=== PATIENT | male | born 1965 | race Caucasian/White ===

== ENCOUNTER → 2016-10-04 | Outpatient (CLI) | payer BC ==
[~2016-10-04] VITALS: Ht 182.9 cm; Wt 106.5 kg
[~2016-10-04] MED LIST: AMITRIPTYLINE H10 MG PO; ASPIR 8181 M1 PO; ASPIR 8181 MG PO; ATACAND16 MG PO; BELSOMRA10 MG PO; BENADRYL ALLERG25 MG PO; CHLORPROMAZINE50 MG PO; CLONAZEPAM0.5 MG PO; COZAAR50 MG PO; CRESTOR20 MG PO; CRESTOR5 MG PO; DEPAKOTE ER500 MG PO; ELAVIL10 MG PO; FIORICET,ESG1 TABLET PO; GABAPENTIN600 MG PO; HYDROCODON-ACE1 EAC7 PO; IMITREX50 MG PO; INDOCIN25 MG PO; KEPPRA250 MG PO; KLONOPIN1 MG PO; LITHIUM CARBON300 MG PO; LO-DOSE ASPIRIN81 M2 PO; LORAZEPAM1 MG PO; NICOTINE PATCH1 EAC2 TD; NORCO 5/3251 TABLET PO; TIZANIDINE HCL2 MG PO; TRAMADOL HCL50 MG PO; VENLAFAXINE HC150 M1 OP; VERAPAMIL HCL120 M1 PO; VERAPAMIL HCL240 MG PO; VITAMIN D31000 UNIT PO; ZEBUTAL 50-3251 EACH PO
[2016-10-04 09:44] VITALS: BP 140/92
== END | disposition home or self-care (01) ==
LOC: OPR 10-01 08:00
PROC: B33RZZZ Magnetic Resonance Imaging (MRI) of Intracranial Arteries (ICD-10-PCS; principal; 2016-10-04)
DX: G81.90 Hemiplegia, unspecified affecting unspecified side (principal); I10 Essential (primary) hypertension; F17.200 Nicotine dependence, unspecified, uncomplicated
CPT/HCPCS: 70544; 70551; B4087; J2250; J2405; J3010

== ENCOUNTER 2016-10-18 12:58 | Inpatient (IN) | payer OTHER ==
[~2016-10-18] VITALS: Ht 182.9 cm; Wt 108.0 kg
[2016-10-18 14:40] LABS: EOSINOPHIL (%) 1.6 % (0-5); EOSINOPHIL COUNT 0.2 K/uL (0-0.3); HEMATOCRIT 45.5 % (38.0-50.0); IMMATURE GRANULOCYTE (%) 0.1 % (0.0-0.7); IMMATURE GRANULOCYTE COUNT 0.1 K/uL; LYMPHOCYTE COUNT 2.2 K/uL (1.0-2.8); MCH 29.5 PG (29.0-34.0); MCHC 34.1 G/DL (30.0-36.0); MCV 86.5 FL (86-99); MEAN PLAT.VOLUME 9.8 uM^3 (9.0-12.4); MONOCYTE (%) 5.6 % (3-12); MONOCYTE COUNT 0.6 K/uL (0-0.8); NEUTROPHIL (%) 70.9 % (45-76); NEUTROPHIL COUNT 7.4 K/uL (1.8-6.4); PLATELET COUNT 229 K/uL (156-360); RBC DIS.WIDTH-CV 12.8 % (11.8-14.6); RED BLOOD COUNT 5.26 M/uL (4.00-5.50); WHITE BLOOD COUNT 10.5 K/uL (4.1-10.2)
[2016-10-18 14:48] LABS: CHLORIDE 107 mEq/L (99-109); POTASSIUM 4.1 mEq/L (3.7-5.4); SODIUM 140 mEq/L (136-147)
[2016-10-18 14:50] LABS: GLUCOSE 98 mg/dL (70-99)
[2016-10-18 14:51] LABS: ANION GAP 9 MEQ/L (2-14)
[2016-10-18 14:53] LABS: SERUM ETHYL ALCOHOL < 10 mg/dL
[2016-10-18 14:54] LABS: GFR ESTIMATE (CALCULATED) > 59 mL/min/
[2016-10-18 14:55] LABS: UREA NITROGEN (BUN) 11 mg/dL (9-23)
[2016-10-18 15:45] LABS: AMPHETAMINE NEGATIVE (500 ng/mL); BARBITURATES NEGATIVE (200 ng/mL); BENZODIAZEPINES NEGATIVE (150 ng/mL); COCAINE NEGATIVE (150 ng/mL); INTERNAL CONTROLS VALID? YES; METHADONE NEGATIVE (200 ng/mL); METHAMPHETAMINE NEGATIVE (500 ng/mL); OPIATES (MORPHINE) NEGATIVE (100 ng/mL); OXYCODONE NEGATIVE (100 ng/mL); PHENCYCLIDINE NEGATIVE (25 ng/mL); PROPOXYPHENE NEGATIVE (300 ng/mL); THC CANNABINOIDS NEGATIVE (50 ng/mL); TRICYCLIC ANTIDEPRESSANTS NEGATIVE (300 ng/mL)
[2016-10-18 16:33] VITALS: BP 136/78
[2016-10-18 16:35] VITALS: BP 136/78
[2016-10-18 20:30] LABS: ADD MIUA? NO; BILIRUBIN NEGATIVE; BLOOD NEGATIVE; COLOR YELLOW ((YELLOW)); GLUCOSE (STRIP) NEGATIVE; KETONES NEGATIVE; LEUKOCYTES NEGATIVE; NITRITE NEGATIVE; PH, URINE 6.5 (5-8); PROTEIN (STRIP) NEGATIVE; SPECIFIC GRAVITY 1.007 (1.000-1.030); UROBILINOGEN 0.2 MG/DL (0.2-1.0)
[2016-10-19 07:34] VITALS: BP 104/58
[2016-10-19 15:52] VITALS: BP 114/65
[2016-10-20 08:02] VITALS: BP 113/80
[2016-10-20] MEDS ORDERED: ASPIR-LOW81 MG PO (10:03)
[2016-10-20] MEDS ORDERED: ZOLOFT50 MG PO (10:03)
[2016-10-20] MEDS ORDERED: INDOCIN25 MG PO ×2 (10:03)
[2016-10-20] MEDS ORDERED: CRESTOR20 MG PO (10:03)
[2016-10-20] MEDS ORDERED: LEVETIRACETAM750 MG PO (10:03)
[2016-10-20] MEDS ORDERED: LOSARTAN POTASS50 MG PO (10:03)
[2016-10-20] MEDS ORDERED: LITHIUM CARBON300 MG PO (10:03)
[2016-10-20] MEDS ORDERED: BELSOMRA10 MG PO (10:03)
[2016-10-20] MEDS ORDERED: VITAMIN D31000 UNI2 PO (10:03)
== END 2016-10-20 12:05 | disposition home or self-care (01) | DRG 882 ==
LOC: EME 12:58 → 1WEST 14:44 → EDOF 14:44 → 1WEST 14:44
PROVIDERS: Emergency Medicine
DX: F43.23 Adjustment disorder with mixed anxiety and depressed mood (principal); I82.0 Budd-Chiari syndrome; F63.81 Intermittent explosive disorder; F60.9 Personality disorder, unspecified; R45.850 Homicidal ideations; F17.210 Nicotine dependence, cigarettes, uncomplicated; E78.5 Hyperlipidemia, unspecified; G43.109 Migraine with aura, not intractable, without status migrainosus; M19.90 Unspecified osteoarthritis, unspecified site; H91.92 Unspecified hearing loss, left ear; F43.12 Post-traumatic stress disorder, chronic; F41.0 Panic disorder [episodic paroxysmal anxiety]; G25.81 Restless legs syndrome; G89.29 Other chronic pain; E66.9 Obesity, unspecified; Z68.32 Body mass index [BMI] 32.0-32.9, adult; Z91.012 Allergy to eggs; Z86.73 Personal history of transient ischemic attack (TIA), and cerebral infarction without residual deficits
CPT/HCPCS: 80048; 80178; 81003; 85025; 90837; 99281; 99285; G0480; J1630; J2060

== ENCOUNTER 2016-11-10 19:46 | Observation (INO) | payer BC ==
[~2016-11-10] VITALS: Ht 182.9 cm; Wt 106.9 kg
[~2016-11-10 19:46] MED LIST changes: +ASPIR-LOW81 MG PO; +LEVETIRACETAM750 MG PO; +LOSARTAN POTASS50 MG PO; +VITAMIN D31000 UNI2 PO; +ZOLOFT50 MG PO
[2016-11-10 21:48] LABS: EOSINOPHIL (%) 1.7 % (0-5); EOSINOPHIL COUNT 0.2 K/uL (0-0.3); HEMATOCRIT 43.3 % (38.0-50.0); IMMATURE GRANULOCYTE (%) 0.1 % (0.0-0.7); IMMATURE GRANULOCYTE COUNT 0.1 K/uL; LYMPHOCYTE COUNT 2.3 K/uL (1.0-2.8); MCH 29.4 PG (29.0-34.0); MCV 88.9 FL (86-99); MEAN PLAT.VOLUME 9.8 uM^3 (9.0-12.4); MONOCYTE (%) 8.4 % (3-12); MONOCYTE COUNT 0.7 K/uL (0-0.8); NEUTROPHIL (%) 62.5 % (45-76); NEUTROPHIL COUNT 5.4 K/uL (1.8-6.4); PLATELET COUNT 194 K/uL (156-360); RBC DIS.WIDTH-CV 13.4 % (11.8-14.6); RBC DIS.WIDTH-SD 42.7 % (39-53); RED BLOOD COUNT 4.87 M/uL (4.00-5.50); WHITE BLOOD COUNT 8.7 K/uL (4.1-10.2)
[2016-11-10 21:59] LABS: PROTHROMBIN TIME 10.5 (9.2-11.2); PTT 25.5 (25-32)
[2016-11-10 22:14] LABS: SAMPLE HEMOLYSIS CHECK 0; SAMPLE ICTERIC CHECK 0; SAMPLE LIPEMIA CHECK 0
[2016-11-10 22:15] LABS: TROP-I INTERPRETATION NEGATIVE; TROPONIN-I 0.02 ng/mL (0.0-0.30)
[2016-11-10 22:20] LABS: HDL CHOLESTEROL 23 MG/DL (Desirable>=40); NON-HDL CHOLESTEROL 108 mg/dL (Desirable<160); TOTAL CHOLESTEROL 131 mg/dL (Desirable<200); TRIGLYCERIDES 457 MG/DL (Normal: <150)
[2016-11-10 22:23] LABS: CHLORIDE 110 mEq/L (99-109); POTASSIUM 4.2 mEq/L (3.7-5.4); SODIUM 142 mEq/L (136-147)
[2016-11-10 22:25] LABS: GLUCOSE 99 mg/dL (70-99)
[2016-11-10 22:27] LABS: ANION GAP 8 MEQ/L (2-14); TOTAL BILIRUBIN 0.4 mg/dL (0.0-1.0)
[2016-11-10 22:29] LABS: ALKALINE PHOSPHATASE 58 IU/L (3-129); GFR ESTIMATE (CALCULATED) > 59 mL/min/
[2016-11-10 22:30] LABS: UREA NITROGEN (BUN) 18 mg/dL (9-23)
[2016-11-10 23:26] LABS: ADD MIUA? NO; BILIRUBIN NEGATIVE; BLOOD NEGATIVE; COLOR YELLOW ((YELLOW)); GLUCOSE (STRIP) NEGATIVE; KETONES 5; LEUKOCYTES NEGATIVE; NITRITE NEGATIVE; PROTEIN (STRIP) 30; SPECIFIC GRAVITY 1.033 (1.000-1.030); UCUL ADDED? NO; UROBILINOGEN 0.2 MG/DL (0.2-1.0)
[2016-11-11] MEDS ORDERED: LO-DOSE ASPIRIN81 M2 PO (00:03)
[2016-11-11] MEDS ORDERED: INDOCIN SR75 MG PO (00:03)
[2016-11-11] MEDS ORDERED: ZOLOFT100 MG PO (00:04)
[2016-11-11] MEDS ORDERED: KEPPRA500 MG PO (00:04)
[2016-11-11] MEDS ORDERED: BELSOMRA10 MG PO (00:05)
[2016-11-11] MEDS ORDERED: LITHIUM CARBON300 MG PO (00:05)
[2016-11-11] MEDS ORDERED: GABAPENTIN600 MG PO (00:06)
[2016-11-11] MEDS ORDERED: KLONOPIN2 MG PO ×2 (00:06)
[2016-11-11 00:49] LABS: SERUM ETHYL ALCOHOL < 10 mg/dL
[2016-11-11 01:38] VITALS: BP 151/72
[2016-11-11 01:42] LABS: BASE EXCESS 0.6 mEq/L (-3 to +3); BICARBONATE 27.8 mEq/L (22-26); CARBOXY HGB 4.4 % (0-5); METHEMOGLOBIN 1.3 % (0-1.5); PCO2 54 mm Hg (35-45); PO2 67 mm Hg (80-100); SITE RR; pH 7.32 (7.35-7.45)
[2016-11-11 01:43] LABS: COMMENTS - BLOOD GASES C+A+; DEVICE NC; O2 FLOW 1 L/MIN
[2016-11-11 04:22] VITALS: BP 115/64
[2016-11-11 05:00] LABS: AMPHETAMINES QUANT VALUE 0 NG/ML; BARBITUATES QUANT VALUE 0 NG/ML; BENZODIAZEPINES, URINE SCREEN POSITIVE (200 ng/mL); MARIJUANA QUANT VALUE 0 NG/ML; OPIATES QUANTITATIVE VALUE 0 NG/ML; PHENCYCLIDINE QUANT VALUE 0 NG/ML
[2016-11-11 07:22] VITALS: BP 120/68
[2016-11-11 11:12] VITALS: BP 130/76
[2016-11-11] MEDS ORDERED: NICOTINE PATCH1 EAC2 TD (12:41)
== END 2016-11-11 19:38 | disposition home or self-care (01) ==
LOC: EME 19:46 → EDOF 23:56 → 5WEST 23:56
PROVIDERS: Emergency Medicine; Physician Assistant Medical
DX: G43.111 Migraine with aura, intractable, with status migrainosus (principal); E78.5 Hyperlipidemia, unspecified; R47.9 Unspecified speech disturbances; F43.10 Post-traumatic stress disorder, unspecified; Z79.82 Long term (current) use of aspirin; Z88.8 Allergy status to other drugs, medicaments and biological substances; Z91.012 Allergy to eggs
CPT/HCPCS: 36600; 70450; 71010; 80053; 80061; 80178; 80306 90; 81003; 82803; 84484; 85025; 85610; 85730; 93005; 99281; 99285; G0378; G0480; J1110; J1200; J1885; J2765; J7030

== ENCOUNTER 2017-05-04 12:16 | Inpatient (IN) | payer OTHER ==
[~2017-05-04] VITALS: Ht 182.9 cm; Wt 99.2 kg
[~2017-05-04 12:16] MED LIST changes: +INDOCIN SR75 MG PO; +KEPPRA500 MG PO; +KLONOPIN2 MG PO; +ZOLOFT100 MG PO
[2017-05-04] MEDS ORDERED: KLONOPIN1 MG PO (12:42)
[2017-05-04] MEDS ORDERED: ZOLOFT100 MG PO (12:43)
[2017-05-04] MEDS ORDERED: KEPPRA750 MG PO (12:43)
[2017-05-04] MEDS ORDERED: VITAMIN D2000 UNIT PO (12:44)
[2017-05-04] MEDS ORDERED: INDERAL40 MG PO (12:45)
[2017-05-04] MEDS ORDERED: LEVOTHYROXINE75 MCG PO (12:45)
[2017-05-04] MEDS ORDERED: ABILIFY10 MG PO (12:46)
[2017-05-04] MEDS ORDERED: TOPIRAMATE25 MG PO (12:47)
[2017-05-04 14:23] LABS: AMPHETAMINE NEGATIVE (500 ng/mL); BARBITURATES NEGATIVE (200 ng/mL); BENZODIAZEPINES NEGATIVE (150 ng/mL); COCAINE NEGATIVE (150 ng/mL); INTERNAL CONTROLS VALID? YES; METHADONE NEGATIVE (200 ng/mL); METHAMPHETAMINE NEGATIVE (500 ng/mL); OPIATES (MORPHINE) NEGATIVE (100 ng/mL); OXYCODONE NEGATIVE (100 ng/mL); PHENCYCLIDINE NEGATIVE (25 ng/mL); PROPOXYPHENE NEGATIVE (300 ng/mL); THC CANNABINOIDS NEGATIVE (50 ng/mL); TRICYCLIC ANTIDEPRESSANTS NEGATIVE (300 ng/mL)
[2017-05-04 14:26] LABS: HEMATOCRIT 40.4 % (38.0-50.0); MCHC 31.9 G/DL (30.0-36.0); MCV 90.8 FL (86-99); MEAN PLAT.VOLUME 9.4 uM^3 (9.0-12.4); PLATELET COUNT 210 K/uL (156-360); RBC DIS.WIDTH-CV 13.5 % (11.8-14.6); RBC DIS.WIDTH-SD 45.2 % (39-53); RED BLOOD COUNT 4.45 M/uL (4.00-5.50); WHITE BLOOD COUNT 7.6 K/uL (4.1-10.2)
[2017-05-04 14:41] LABS: CHLORIDE 109 mEq/L (99-109); POTASSIUM 3.8 mEq/L (3.7-5.4); SODIUM 139 mEq/L (136-147)
[2017-05-04 14:42] LABS: GLUCOSE 88 mg/dL (70-99)
[2017-05-04 14:44] LABS: ANION GAP 7 MEQ/L (2-14)
[2017-05-04 14:46] LABS: GFR ESTIMATE (CALCULATED) > 59 mL/min/; SERUM ETHYL ALCOHOL < 10 mg/dL
[2017-05-04 14:47] LABS: UREA NITROGEN (BUN) 13 mg/dL (9-23)
[2017-05-04 16:51] VITALS: BP 98/67
[2017-05-04 16:56] VITALS: BP 98/67
[2017-05-05 07:36] VITALS: BP 82/52
[2017-05-05 08:55] VITALS: BP 106/77
[2017-05-05 15:22] VITALS: BP 93/57
[2017-05-06 07:41] VITALS: BP 107/71
[2017-05-06 15:20] VITALS: BP 113/64
[2017-05-07 07:56] VITALS: BP 102/70
[2017-05-07 16:01] VITALS: BP 109/64
[2017-05-08 07:17] VITALS: BP 113/63
[2017-05-08 14:59] VITALS: BP 111/56
[2017-05-09 07:34] VITALS: BP 113/61
[2017-05-09 15:28] VITALS: BP 95/54
[2017-05-09 19:22] VITALS: BP 82/49
[2017-05-09 20:23] VITALS: BP 116/75
[2017-05-10 08:04] VITALS: BP 109/70
[2017-05-10 15:27] VITALS: BP 103/66
[2017-05-11 07:01] VITALS: BP 82/52
[2017-05-11] MEDS ORDERED: OLANZAPINE5 MG PO (10:39)
[2017-05-11] MEDS ORDERED: TRAMADOL HCL50 MG PO (10:39)
[2017-05-11 15:54] VITALS: BP 105/61
== END 2017-05-11 17:15 | disposition home or self-care (01) | DRG 885 ==
LOC: EME 12:16 → EDOF 13:48 → 1WEST 13:48 → ENRESERV 16:42 → 1WEST 16:42
PROVIDERS: Emergency Medicine
DX: F31.64 Bipolar disorder, current episode mixed, severe, with psychotic features (principal); R45.851 Suicidal ideations; E78.5 Hyperlipidemia, unspecified; F41.0 Panic disorder [episodic paroxysmal anxiety]; F43.10 Post-traumatic stress disorder, unspecified; G25.81 Restless legs syndrome; H91.92 Unspecified hearing loss, left ear; I10 Essential (primary) hypertension; R45.1 Restlessness and agitation; G47.9 Sleep disorder, unspecified; F17.210 Nicotine dependence, cigarettes, uncomplicated; R45.850 Homicidal ideations; G43.909 Migraine, unspecified, not intractable, without status migrainosus; Z86.73 Personal history of transient ischemic attack (TIA), and cerebral infarction without residual deficits; Z73.6 Limitation of activities due to disability; Z79.82 Long term (current) use of aspirin; Z87.442 Personal history of urinary calculi
CPT/HCPCS: 80048; 80178; 85027; 90837; 97150 GO; 97165 GO; 99281; 99285; G0480; J1885

== ENCOUNTER 2017-05-27 15:40 | Emergency (ER) | payer BC ==
[~2017-05-27] VITALS: Ht 182.9 cm; Wt 100.0 kg
[~2017-05-27 15:40] MED LIST changes: +ABILIFY10 MG PO; +INDERAL40 MG PO; +KEPPRA750 MG PO; +LEVOTHYROXINE75 MCG PO; +OLANZAPINE5 MG PO; +TOPIRAMATE25 MG PO; +VITAMIN D2000 UNIT PO
[2017-05-27 16:30] LABS: HEMATOCRIT 40.1 % (38.0-50.0); MCH 29.2 PG (29.0-34.0); MCHC 31.7 G/DL (30.0-36.0); MCV 92.2 FL (86-99); MEAN PLAT.VOLUME 8.8 uM^3 (9.0-12.4); PLATELET COUNT 223 K/uL (156-360); RBC DIS.WIDTH-CV 14.1 % (11.8-14.6); RBC DIS.WIDTH-SD 47.5 % (39-53); RED BLOOD COUNT 4.35 M/uL (4.00-5.50); WHITE BLOOD COUNT 10.1 K/uL (4.1-10.2)
[2017-05-27 16:38] LABS: CHLORIDE 114 mEq/L (99-109); POTASSIUM 3.7 mEq/L (3.7-5.4); SODIUM 143 mEq/L (136-147)
[2017-05-27 16:40] LABS: GLUCOSE 97 mg/dL (70-99)
[2017-05-27 16:41] LABS: ANION GAP 6 MEQ/L (2-14)
[2017-05-27 16:43] LABS: SERUM ETHYL ALCOHOL < 10 mg/dL
[2017-05-27 16:44] LABS: GFR ESTIMATE (CALCULATED) > 59 mL/min/; UREA NITROGEN (BUN) 11 mg/dL (9-23)
[2017-05-27 17:23] LABS: ADD MIUA? YES; BILIRUBIN NEGATIVE; BLOOD NEGATIVE; COLOR YELLOW ((YELLOW)); GLUCOSE (STRIP) NEGATIVE; KETONES NEGATIVE; LEUKOCYTES NEGATIVE; NITRITE NEGATIVE; PROTEIN (STRIP) 30; SPECIFIC GRAVITY 1.023 (1.000-1.030); UROBILINOGEN 0.2 MG/DL (0.2-1.0)
[2017-05-27 17:37] LABS: BACTERIA NONE SEEN /HPF; EPITHELIAL CELLS RARE /HPF; HYALINE CASTS TNTC /LPF; MUCUS 2+ /LPF; RED BLOOD CELLS 0-5 /HPF (0-5); RENAL EPITHELIAL CELLS 1+ /HPF; WHITE BLOOD CELLS 0-5 /HPF (0-5)
[2017-05-27 17:46] LABS: ADD MEDTOX COMMENT Y; AMPHETAMINE NEGATIVE (500 ng/mL); BARBITURATES NEGATIVE (200 ng/mL); BENZODIAZEPINES PRESUMPTIVE POSITIVE (150 ng/mL); COCAINE NEGATIVE (150 ng/mL); INTERNAL CONTROLS VALID? YES; METHADONE NEGATIVE (200 ng/mL); METHAMPHETAMINE NEGATIVE (500 ng/mL); OPIATES (MORPHINE) NEGATIVE (100 ng/mL); OXYCODONE NEGATIVE (100 ng/mL); PHENCYCLIDINE NEGATIVE (25 ng/mL); PROPOXYPHENE NEGATIVE (300 ng/mL); THC CANNABINOIDS NEGATIVE (50 ng/mL); TRICYCLIC ANTIDEPRESSANTS NEGATIVE (300 ng/mL)
[2017-05-27 18:12] LABS: BENZODIAZEPINES, URINE SCREEN POSITIVE (200 ng/mL)
[2017-05-28 01:07] VITALS: BP 108/61
== END 2017-05-28 01:13 ==
LOC: EME 15:40
PROVIDERS: Physician Assistant
DX: F23 Brief psychotic disorder (principal); F31.2 Bipolar disorder, current episode manic severe with psychotic features; Z04.6 Encounter for general psychiatric examination, requested by authority; E78.5 Hyperlipidemia, unspecified; I10 Essential (primary) hypertension; H91.92 Unspecified hearing loss, left ear; F17.200 Nicotine dependence, unspecified, uncomplicated; Z87.442 Personal history of urinary calculi
CPT/HCPCS: 80048; 80178; 81003; 84999; 85027; 90837; 93005; 99281; 99285; G0480

== ENCOUNTER 2017-06-03 20:29 | Emergency (ER) | payer BC ==
[~2017-06-03] VITALS: Ht 182.9 cm; Wt 102.9 kg
[2017-06-03 23:36] VITALS: BP 116/75
== END 2017-06-03 23:36 | disposition home or self-care (01) ==
LOC: EME 20:29
DX: F31.2 Bipolar disorder, current episode manic severe with psychotic features (principal); F43.10 Post-traumatic stress disorder, unspecified; I10 Essential (primary) hypertension; E78.5 Hyperlipidemia, unspecified; G25.81 Restless legs syndrome; F17.200 Nicotine dependence, unspecified, uncomplicated; H91.92 Unspecified hearing loss, left ear
CPT/HCPCS: 90837; 99281; 99283

== ENCOUNTER 2017-07-04 10:42 | Inpatient (IN) | payer OTHER ==
[~2017-07-04] VITALS: Ht 182.9 cm; Wt 93.2 kg
[2017-07-04 11:41] LABS: EOSINOPHIL COUNT 0.1 K/uL (0-0.3); HEMATOCRIT 49.3 % (38.0-50.0); IMMATURE GRANULOCYTE (%) 0.4 % (0.0-0.7); INSTRUMENT ABS NEUTROPHIL CT 5.8 K/uL; LYMPHOCYTE COUNT 1.7 K/uL (1.0-2.8); MCH 28.6 PG (29.0-34.0); MCHC 31.6 G/DL (30.0-36.0); MCV 90.5 FL (86-99); MEAN PLAT.VOLUME 10.2 uM^3 (9.0-12.4); MONOCYTE (%) 5.1 % (3-12); MONOCYTE COUNT 0.4 K/uL (0-0.8); NEUTROPHIL (%) 71.5 % (45-76); NEUTROPHIL COUNT 5.8 K/uL (1.8-6.4); PLATELET COUNT 188 K/uL (156-360); RBC DIS.WIDTH-SD 42.7 % (39-53); RED BLOOD COUNT 5.45 M/uL (4.00-5.50); WHITE BLOOD COUNT 8.1 K/uL (4.1-10.2)
[2017-07-04 11:52] LABS: CHLORIDE 108 mEq/L (99-109); POTASSIUM 4.1 mEq/L (3.7-5.4); SODIUM 143 mEq/L (136-147)
[2017-07-04 11:54] LABS: GLUCOSE 88 mg/dL (70-99)
[2017-07-04] MEDS ORDERED: VALIUM5 MG PO (11:54)
[2017-07-04 11:55] LABS: ANION GAP 14 MEQ/L (2-14)
[2017-07-04] MEDS ORDERED: CENTRUM SILVER1 EAC5 PO (11:55)
[2017-07-04] MEDS ORDERED: TORADOL10 MG PO (11:55)
[2017-07-04 11:57] LABS: SERUM ETHYL ALCOHOL < 10 mg/dL
[2017-07-04 11:58] LABS: GFR ESTIMATE (CALCULATED) > 59 mL/min/
[2017-07-04 11:59] LABS: UREA NITROGEN (BUN) 6 mg/dL (9-23)
[2017-07-04 12:47] LABS: ADD MIUA? NO; BILIRUBIN NEGATIVE; BLOOD NEGATIVE; COLOR YELLOW ((YELLOW)); GLUCOSE (STRIP) NEGATIVE; KETONES 20; LEUKOCYTES NEGATIVE; NITRITE NEGATIVE; PROTEIN (STRIP) NEGATIVE; SPECIFIC GRAVITY 1.011 (1.000-1.030); UROBILINOGEN 0.2 MG/DL (0.2-1.0)
[2017-07-04 12:57] LABS: ADD MEDTOX COMMENT Y; AMPHETAMINE NEGATIVE (500 ng/mL); BARBITURATES NEGATIVE (200 ng/mL); BENZODIAZEPINES PRESUMPTIVE POSITIVE (150 ng/mL); COCAINE NEGATIVE (150 ng/mL); INTERNAL CONTROLS VALID? YES; METHADONE NEGATIVE (200 ng/mL); METHAMPHETAMINE NEGATIVE (500 ng/mL); OPIATES (MORPHINE) NEGATIVE (100 ng/mL); OXYCODONE NEGATIVE (100 ng/mL); PHENCYCLIDINE NEGATIVE (25 ng/mL); PROPOXYPHENE NEGATIVE (300 ng/mL); THC CANNABINOIDS NEGATIVE (50 ng/mL); TRICYCLIC ANTIDEPRESSANTS NEGATIVE (300 ng/mL)
[2017-07-04 14:06] LABS: BENZODIAZEPINES, URINE SCREEN POSITIVE (200 ng/mL)
[2017-07-04 16:59] VITALS: BP 169/91
[2017-07-04 17:05] VITALS: BP 169/91
[2017-07-05 07:54] VITALS: BP 131/83
[2017-07-05 15:27] VITALS: BP 117/74
[2017-07-06 07:38] VITALS: BP 97/53
[2017-07-06 16:02] VITALS: BP 141/82
[2017-07-07 08:05] VITALS: BP 137/84
[2017-07-07] MEDS ORDERED: TOPIRAMATE25 MG PO (09:10)
[2017-07-07] MEDS ORDERED: DIVALPROEX SOD500 M1 PO (09:10)
[2017-07-07] MEDS ORDERED: SUMATRIPTAN SU100 MG PO (09:10)
[2017-07-07] MEDS ORDERED: TRAZODONE HCL50 MG PO (09:10)
== END 2017-07-07 11:02 | disposition home or self-care (01) | DRG 885 ==
LOC: EME 10:42 → 1WEST 14:31 → EDOF 14:31 → ENRESERV 16:50 → 1WEST 17:04
PROVIDERS: Emergency Medicine
DX: F31.9 Bipolar disorder, unspecified (principal); F60.9 Personality disorder, unspecified; F43.10 Post-traumatic stress disorder, unspecified; R45.851 Suicidal ideations; G93.5 Compression of brain; E78.5 Hyperlipidemia, unspecified; G25.81 Restless legs syndrome; I10 Essential (primary) hypertension; G43.909 Migraine, unspecified, not intractable, without status migrainosus; F17.200 Nicotine dependence, unspecified, uncomplicated; Z86.73 Personal history of transient ischemic attack (TIA), and cerebral infarction without residual deficits; Z79.82 Long term (current) use of aspirin; Z91.14 Patient's other noncompliance with medication regimen
CPT/HCPCS: 80048; 81003; 84999; 85025; 90839; 97150 GO; 97165 GO; 99281; 99285; G0480; Q0177

== ENCOUNTER 2017-08-23 12:55 | Emergency (ER) | payer BC ==
[~2017-08-23] VITALS: Ht 182.9 cm; Wt 96.4 kg
[~2017-08-23 12:55] MED LIST changes: +CENTRUM SILVER1 EAC5 PO; +DIVALPROEX SOD500 M1 PO; +SUMATRIPTAN SU100 MG PO; +TORADOL10 MG PO; +TRAZODONE HCL50 MG PO; +VALIUM5 MG PO
[2017-08-23 13:47] LABS: HEMATOCRIT 40.7 % (38.0-50.0); MCH 29.4 PG (29.0-34.0); MCHC 32.7 G/DL (30.0-36.0); MCV 89.8 FL (86-99); MEAN PLAT.VOLUME 9.3 uM^3 (9.0-12.4); PLATELET COUNT 181 K/uL (156-360); RBC DIS.WIDTH-CV 13.6 % (11.8-14.6); RBC DIS.WIDTH-SD 44.4 % (39-53); RED BLOOD COUNT 4.53 M/uL (4.00-5.50); WHITE BLOOD COUNT 8.7 K/uL (4.1-10.2)
[2017-08-23 13:55] LABS: CHLORIDE 110 mEq/L (99-109); POTASSIUM 4.2 mEq/L (3.7-5.4); SODIUM 146 mEq/L (136-147)
[2017-08-23 13:57] LABS: GLUCOSE 89 mg/dL (70-99)
[2017-08-23 13:58] LABS: ANION GAP 14 MEQ/L (2-14)
[2017-08-23 14:00] LABS: SERUM ETHYL ALCOHOL < 10 mg/dL
[2017-08-23 14:01] LABS: GFR ESTIMATE (CALCULATED) > 59 mL/min/
[2017-08-23 14:02] LABS: UREA NITROGEN (BUN) 8 mg/dL (9-23)
[2017-08-23 14:08] LABS: TROP-I INTERPRETATION NEGATIVE; TROPONIN-I < 0.01 ng/mL (0.0-0.30)
[2017-08-23 14:51] LABS: ADD MIUA? NO; BILIRUBIN NEGATIVE; BLOOD NEGATIVE; COLOR YELLOW ((YELLOW)); GLUCOSE (STRIP) NEGATIVE; KETONES NEGATIVE; LEUKOCYTES NEGATIVE; NITRITE NEGATIVE; PROTEIN (STRIP) NEGATIVE; SPECIFIC GRAVITY 1.006 (1.000-1.030); UROBILINOGEN 0.2 MG/DL (0.2-1.0)
[2017-08-23 15:16] LABS: AMPHETAMINE NEGATIVE (500 ng/mL); BENZODIAZEPINES PRESUMPTIVE POSITIVE (150 ng/mL); COCAINE NEGATIVE (150 ng/mL); METHAMPHETAMINE NEGATIVE (500 ng/mL); OPIATES (MORPHINE) NEGATIVE (100 ng/mL); PHENCYCLIDINE NEGATIVE (25 ng/mL); THC CANNABINOIDS NEGATIVE (50 ng/mL)
[2017-08-23 15:17] LABS: ADD MEDTOX COMMENT Y; BARBITURATES NEGATIVE (200 ng/mL); INTERNAL CONTROLS VALID? YES; METHADONE NEGATIVE (200 ng/mL); OXYCODONE NEGATIVE (100 ng/mL); PROPOXYPHENE NEGATIVE (300 ng/mL); TRICYCLIC ANTIDEPRESSANTS NEGATIVE (300 ng/mL)
[2017-08-23 15:41] LABS: BENZODIAZEPINES, URINE SCREEN POSITIVE (200 ng/mL)
[2017-08-23 16:13] VITALS: BP 128/81
[2017-08-24] MEDS ORDERED: TOPAMAX25 MG PO (18:00)
[2017-08-24] MEDS ORDERED: FLONASE16 G1 BOTH NARES (18:00)
[2017-08-24] MEDS ORDERED: CLONAZEPAM1 MG PO (18:01)
[2017-08-24] MEDS ORDERED: SERTRALINE HCL50 MG PO (18:01)
[2017-08-24] MEDS ORDERED: MELOXICAM7.5 MG PO (18:01)
[2017-08-24] MEDS ORDERED: BELSOMRA10 MG PO (18:02)
== END 2017-08-23 16:15 | disposition home or self-care (01) ==
LOC: EME 12:55
PROVIDERS: Emergency Medicine
DX: S00.93XA Contusion of unspecified part of head, initial encounter (principal); M54.5 Low back pain; M25.561 Pain in right knee; W19.XXXA Unspecified fall, initial encounter; Y92.512 Supermarket, store or market as the place of occurrence of the external cause; Z79.82 Long term (current) use of aspirin; E78.5 Hyperlipidemia, unspecified; I10 Essential (primary) hypertension; Z86.73 Personal history of transient ischemic attack (TIA), and cerebral infarction without residual deficits; F32.9 Major depressive disorder, single episode, unspecified; G25.81 Restless legs syndrome; F43.10 Post-traumatic stress disorder, unspecified; Z88.8 Allergy status to other drugs, medicaments and biological substances; F17.200 Nicotine dependence, unspecified, uncomplicated
CPT/HCPCS: 70450; 72070; 72100; 73564; 80048; 81003; 84484; 84999; 85027; 93005; 99281; 99284; G0480

== ENCOUNTER 2017-08-24 15:20 | Observation (INO) | payer BC ==
[~2017-08-24] VITALS: Ht 182.9 cm; Wt 92.0 kg
[2017-08-24 16:34] LABS: BASOPHIL COUNT 0.1 K/uL (0-0.1); EOSINOPHIL (%) 2.8 % (0-5); EOSINOPHIL COUNT 0.2 K/uL (0-0.3); HEMATOCRIT 40.8 % (38.0-50.0); IMMATURE GRANULOCYTE (%) 0.3 % (0.0-0.7); INSTRUMENT ABS NEUTROPHIL CT 4.8 K/uL; LYMPHOCYTE COUNT 2.3 K/uL (1.0-2.8); MCH 29.6 PG (29.0-34.0); MCHC 32.4 G/DL (30.0-36.0); MCV 91.5 FL (86-99); MEAN PLAT.VOLUME 9.1 uM^3 (9.0-12.4); MONOCYTE (%) 6.7 % (3-12); MONOCYTE COUNT 0.5 K/uL (0-0.8); NEUTROPHIL (%) 60.7 % (45-76); NEUTROPHIL COUNT 4.8 K/uL (1.8-6.4); PLATELET COUNT 186 K/uL (156-360); RBC DIS.WIDTH-CV 13.9 % (11.8-14.6); RBC DIS.WIDTH-SD 46.6 % (39-53); RED BLOOD COUNT 4.46 M/uL (4.00-5.50)
[2017-08-24 16:45] LABS: CHLORIDE 110 mEq/L (99-109); POTASSIUM 4.1 mEq/L (3.7-5.4); SODIUM 142 mEq/L (136-147)
[2017-08-24 16:46] LABS: GLUCOSE 88 mg/dL (70-99)
[2017-08-24 16:48] LABS: ANION GAP 6 MEQ/L (2-14)
[2017-08-24 16:50] LABS: GFR ESTIMATE (CALCULATED) > 59 mL/min/
[2017-08-24 16:51] LABS: UREA NITROGEN (BUN) 8 mg/dL (9-23)
[2017-08-24 16:55] LABS: TROP-I INTERPRETATION NEGATIVE; TROPONIN-I < 0.01 ng/mL (0.0-0.30)
[2017-08-24] MEDS ORDERED: FLONASE16 G1 BOTH NARES (18:00)
[2017-08-24] MEDS ORDERED: TOPAMAX25 MG PO (18:00)
[2017-08-24] MEDS ORDERED: SERTRALINE HCL50 MG PO (18:01)
[2017-08-24] MEDS ORDERED: MELOXICAM7.5 MG PO (18:01)
[2017-08-24] MEDS ORDERED: CLONAZEPAM1 MG PO (18:01)
[2017-08-24] MEDS ORDERED: BELSOMRA10 MG PO (18:02)
[2017-08-24 22:25] VITALS: BP 106/57
[2017-08-24 23:10] LABS: TROP-I INTERPRETATION NEGATIVE; TROPONIN-I < 0.01 ng/mL (0.0-0.30)
[2017-08-24 23:52] VITALS: BP 110/60
[2017-08-25 04:10] VITALS: BP 95/61
[2017-08-25 05:31] LABS: BASOPHIL COUNT 0.1 K/uL (0-0.1); EOSINOPHIL (%) 4.7 % (0-5); EOSINOPHIL COUNT 0.3 K/uL (0-0.3); HEMATOCRIT 38.9 % (38.0-50.0); IMMATURE GRANULOCYTE (%) 0.2 % (0.0-0.7); INSTRUMENT ABS NEUTROPHIL CT 2.6 K/uL; LYMPHOCYTE COUNT 2.8 K/uL (1.0-2.8); MCHC 31.4 G/DL (30.0-36.0); MCV 92.4 FL (86-99); MONOCYTE (%) 7.4 % (3-12); MONOCYTE COUNT 0.5 K/uL (0-0.8); NEUTROPHIL (%) 41.7 % (45-76); NEUTROPHIL COUNT 2.6 K/uL (1.8-6.4); PLATELET COUNT 174 K/uL (156-360); RBC DIS.WIDTH-CV 13.9 % (11.8-14.6); RBC DIS.WIDTH-SD 47.3 % (39-53); RED BLOOD COUNT 4.21 M/uL (4.00-5.50); WHITE BLOOD COUNT 6.1 K/uL (4.1-10.2)
[2017-08-25 05:59] LABS: TROP-I INTERPRETATION NEGATIVE; TROPONIN-I < 0.01 ng/mL (0.0-0.30)
[2017-08-25 06:36] LABS: ALKALINE PHOSPHATASE 35 IU/L (3-129); ANION GAP 5 MEQ/L (2-14); CHLORIDE 111 MEQ/L (99-109); DIRECT BILIRUBIN 0.1 mg/dL (0.0-0.3); GFR ESTIMATE (CALCULATED) > 59 mL/min/; GLUCOSE 83 mg/dL (70-99); POTASSIUM 4.6 MEQ/L (3.7-5.4); SAMPLE HEMOLYSIS CHECK 0; SAMPLE ICTERIC CHECK 0; SAMPLE LIPEMIA CHECK 0; SODIUM 145 MEQ/L (136-147); TOTAL BILIRUBIN 0.4 MG/DL (0.0-1.0); UREA NITROGEN (BUN) 10 mg/dL (9-23)
[2017-08-25 07:58] VITALS: BP 114/71
[2017-08-25 09:00] VITALS: BP 137/93
[2017-08-25 10:31] VITALS: BP 127/77
[2017-08-25] MEDS ORDERED: DEPAKOTE ER500 MG PO (21:45)
[2017-08-25] MEDS ORDERED: CLONAZEPAM1 MG PO (22:55)
== END 2017-08-25 11:47 | disposition left against medical advice (07) ==
LOC: EME 15:20 → EDOF 20:52 → 5WEST 20:52 → EDOF 20:52 → ENRESERV 20:53 → 5WEST 21:58
PROVIDERS: Emergency Medicine; Physician Assistant
DX: R55 Syncope and collapse (principal); S00.93XA Contusion of unspecified part of head, initial encounter; R51 Headache; G93.5 Compression of brain; F43.10 Post-traumatic stress disorder, unspecified; F63.81 Intermittent explosive disorder; F40.240 Claustrophobia; G89.29 Other chronic pain; E78.5 Hyperlipidemia, unspecified; F17.200 Nicotine dependence, unspecified, uncomplicated; R42 Dizziness and giddiness; G47.9 Sleep disorder, unspecified; M54.9 Dorsalgia, unspecified; G25.81 Restless legs syndrome; Z79.82 Long term (current) use of aspirin; F31.9 Bipolar disorder, unspecified; Z88.8 Allergy status to other drugs, medicaments and biological substances
CPT/HCPCS: 70450; 80048; 80076; 84484; 85025; 93005; 93306; 99281; 99285; G0378; J7030

== ENCOUNTER 2017-08-25 19:08 | Observation (INO) | payer BC ==
[~2017-08-25] VITALS: Ht 182.9 cm; Wt 91.5 kg
[~2017-08-25 19:08] MED LIST changes: +CLONAZEPAM1 MG PO; +FLONASE16 G1 BOTH NARES; +MELOXICAM7.5 MG PO; +SERTRALINE HCL50 MG PO; +TOPAMAX25 MG PO
[2017-08-25 19:37] LABS: HEMATOCRIT 42.2 % (38.0-50.0); MCH 29.5 PG (29.0-34.0); MCV 92.3 FL (86-99); MEAN PLAT.VOLUME 8.9 uM^3 (9.0-12.4); PLATELET COUNT 189 K/uL (156-360); RBC DIS.WIDTH-CV 13.8 % (11.8-14.6); RED BLOOD COUNT 4.57 M/uL (4.00-5.50); WHITE BLOOD COUNT 6.6 K/uL (4.1-10.2)
[2017-08-25 19:45] LABS: CHLORIDE 110 mEq/L (99-109); SODIUM 142 mEq/L (136-147)
[2017-08-25 19:47] LABS: GLUCOSE 85 mg/dL (70-99)
[2017-08-25 19:48] LABS: ANION GAP 5 MEQ/L (2-14)
[2017-08-25 19:51] LABS: GFR ESTIMATE (CALCULATED) > 59 mL/min/ (58.99-99999); UREA NITROGEN (BUN) 9 mg/dL (9-23)
[2017-08-25 21:09] LABS: SERUM ETHYL ALCOHOL < 10 mg/dL
[2017-08-25 21:28] LABS: BILIRUBIN NEGATIVE; BLOOD NEGATIVE; COLOR YELLOW ((YELLOW)); GLUCOSE (STRIP) NEGATIVE; KETONES 5; LEUKOCYTES NEGATIVE; NITRITE NEGATIVE; PROTEIN (STRIP) 30; SPECIFIC GRAVITY 1.026 (1.000-1.030)
[2017-08-25 21:29] LABS: ADD MIUA? NO; UCUL ADDED? NO
[2017-08-25 21:39] LABS: AMPHETAMINE NEGATIVE (500 ng/mL); BARBITURATES NEGATIVE (200 ng/mL); BENZODIAZEPINES PRESUMPTIVE POSITIVE (150 ng/mL); COCAINE NEGATIVE (150 ng/mL); INTERNAL CONTROLS VALID? YES; METHADONE NEGATIVE (200 ng/mL); METHAMPHETAMINE NEGATIVE (500 ng/mL); OPIATES (MORPHINE) PRESUMPTIVE POSITIVE (100 ng/mL); OXYCODONE NEGATIVE (100 ng/mL); PHENCYCLIDINE NEGATIVE (25 ng/mL); PROPOXYPHENE NEGATIVE (300 ng/mL); THC CANNABINOIDS NEGATIVE (50 ng/mL); TRICYCLIC ANTIDEPRESSANTS NEGATIVE (300 ng/mL)
[2017-08-25 21:40] LABS: ADD MEDTOX COMMENT Y
[2017-08-25] MEDS ORDERED: DEPAKOTE ER500 MG PO (21:45)
[2017-08-25 22:15] LABS: BENZODIAZEPINES, URINE SCREEN POSITIVE (200 ng/mL)
[2017-08-25] MEDS ORDERED: CLONAZEPAM1 MG PO (22:55)
[2017-08-26 02:25] VITALS: BP 148/85
[2017-08-26 04:50] VITALS: BP 95/59
[2017-08-26 07:45] VITALS: BP 116/66
[2017-08-26 11:49] VITALS: BP 108/58
[2017-08-26 11:51] VITALS: BP 103/56
[2017-08-26 16:26] VITALS: BP 104/53
== END 2017-08-26 16:56 | disposition home or self-care (01) ==
LOC: EXP 19:08 → EME 19:08 → 5WEST 22:27 → EDOF 22:27 → ENRESERV 22:29 → 5WEST 23:30
PROVIDERS: Physician Assistant
DX: R55 Syncope and collapse (principal); F40.240 Claustrophobia; F31.9 Bipolar disorder, unspecified; S00.83XA Contusion of other part of head, initial encounter; G43.109 Migraine with aura, not intractable, without status migrainosus; R20.0 Anesthesia of skin; G93.5 Compression of brain; F43.20 Adjustment disorder, unspecified; F43.10 Post-traumatic stress disorder, unspecified; G47.9 Sleep disorder, unspecified; G89.29 Other chronic pain; M54.9 Dorsalgia, unspecified; G25.81 Restless legs syndrome; E78.5 Hyperlipidemia, unspecified; H91.92 Unspecified hearing loss, left ear; E03.9 Hypothyroidism, unspecified; F17.200 Nicotine dependence, unspecified, uncomplicated; Z88.8 Allergy status to other drugs, medicaments and biological substances; Z79.82 Long term (current) use of aspirin
CPT/HCPCS: 70450; 71020; 72125; 80048 91; 81003; 84999; 85027; 93005; 99281; 99284; G0378; G0480; J1200; J1885; J2765; J2930; J7030

== ENCOUNTER 2017-10-25 11:55 | Inpatient (IN) | payer OTHER ==
[~2017-10-25] VITALS: Ht 182.9 cm; Wt 92.4 kg
[2017-10-25 13:08] LABS: APPEARANCE SL.HAZY ((CLEAR)); BILIRUBIN NEGATIVE; BLOOD NEGATIVE; COLOR YELLOW ((YELLOW)); GLUCOSE (STRIP) NEGATIVE; KETONES 5; LEUKOCYTES NEGATIVE; NITRITE NEGATIVE; PROTEIN (STRIP) NEGATIVE; SPECIFIC GRAVITY 1.016 (1.000-1.030); UROBILINOGEN 0.2 MG/DL (0.2-1.0)
[2017-10-25 13:14] LABS: BACTERIA RARE /HPF; CALCIUM OXALATE CRYSTALS 1+ /HPF; EPITHELIAL CELLS NONE SEEN /HPF; MUCUS TRACE /LPF; RED BLOOD CELLS 0-5 /HPF (0-5); WHITE BLOOD CELLS 0-5 /HPF (0-5)
[2017-10-25 13:15] LABS: HEMATOCRIT 44.5 % (38.0-50.0); HEMOGLOBIN 14.9 G/DL (12.5-16.6); MCH 30.2 PG (29.0-34.0); MCHC 33.5 G/DL (30.0-36.0); MCV 90.1 FL (86-99); PLATELET COUNT 150 K/uL (156-360); RBC DIS.WIDTH-CV 13.1 % (11.8-14.6); RBC DIS.WIDTH-SD 43.3 % (39-53); RED BLOOD COUNT 4.94 M/uL (4.00-5.50); WHITE BLOOD COUNT 6.8 K/uL (4.1-10.2)
[2017-10-25 13:20] LABS: AMPHETAMINE NEGATIVE (500 ng/mL); BARBITURATES NEGATIVE (200 ng/mL); BENZODIAZEPINES PRESUMPTIVE POSITIVE (150 ng/mL); BUPRENORPHINE NEGATIVE (10 ng/mL); COCAINE NEGATIVE (150 ng/mL); METHADONE NEGATIVE (200 ng/mL); METHAMPHETAMINE NEGATIVE (500 ng/mL); OPIATES (MORPHINE) NEGATIVE (100 ng/mL); OXYCODONE NEGATIVE (100 ng/mL); PHENCYCLIDINE NEGATIVE (25 ng/mL); PROPOXYPHENE NEGATIVE (300 ng/mL); THC CANNABINOIDS NEGATIVE (50 ng/mL); TRICYCLIC ANTIDEPRESSANTS NEGATIVE (300 ng/mL)
[2017-10-25 13:24] LABS: CHLORIDE 109 mEq/L (99-109); POTASSIUM 4.7 mEq/L (3.7-5.4); SODIUM 144 mEq/L (136-147)
[2017-10-25 13:26] LABS: GLUCOSE 81 mg/dL (70-99)
[2017-10-25 13:27] LABS: TOTAL PROTEIN 6.5 g/dL (6.4-8.3)
[2017-10-25 13:28] LABS: TOTAL BILIRUBIN 0.4 mg/dL (0.0-1.0)
[2017-10-25 13:29] LABS: SERUM ETHYL ALCOHOL < 10 mg/dL
[2017-10-25 13:30] LABS: ALKALINE PHOSPHATASE 53 IU/L (3-129); CREATININE 0.8 mg/dL (0.6-1.3); GFR ESTIMATE (CALCULATED) > 59 mL/min/ (58.99-99999)
[2017-10-25 13:31] LABS: UREA NITROGEN (BUN) 15 mg/dL (9-23)
[2017-10-25 13:32] LABS: AST (GOT) 16 IU/L (2-34)
[2017-10-25 13:33] LABS: ALT (GPT) 18 IU/L (3-49)
[2017-10-25 14:06] LABS: BENZODIAZEPINES, URINE SCREEN POSITIVE (200 ng/mL)
[2017-10-25] MEDS ORDERED: SILENOR3 MG PO (16:52)
[2017-10-25] MEDS ORDERED: MELOXICAM15 MG PO (16:54)
[2017-10-25] MEDS ORDERED: SERTRALINE HCL100 MG PO (16:56)
[2017-10-25] MEDS ORDERED: ROSUVASTATIN CA20 MG PO (16:57)
[2017-10-25] MEDS ORDERED: DIVALPROEX SOD500 M1 PO (16:59)
[2017-10-25] MEDS ORDERED: SUMATRIPTAN SU100 MG PO (17:00)
[2017-10-25] MEDS ORDERED: VITAMIN D31000 UNI2 PO (17:03)
[2017-10-25 17:55] VITALS: BP 151/82
[2017-10-25 18:07] VITALS: BP 151/82
[2017-10-25] MEDS ORDERED: TRAZODONE HCL50 MG PO (20:42)
[2017-10-25] MEDS ORDERED: FLONASE SENSIM9.9 ML NS (20:45)
[2017-10-26 07:51] VITALS: BP 133/76
== END 2017-10-26 12:36 | disposition home or self-care (01) | DRG 885 ==
LOC: EME 11:55 → EDOF 15:53 → ENRESERV 16:39 → 1WEST 17:49
PROVIDERS: Emergency Medicine
DX: F31.9 Bipolar disorder, unspecified (principal); F60.9 Personality disorder, unspecified; G43.909 Migraine, unspecified, not intractable, without status migrainosus; Z88.8 Allergy status to other drugs, medicaments and biological substances; F17.200 Nicotine dependence, unspecified, uncomplicated; E78.5 Hyperlipidemia, unspecified; I10 Essential (primary) hypertension
CPT/HCPCS: 80053; 80164; 81003; 84999; 85027; 90837; 99281; 99285; G0480; Q0177

== ENCOUNTER 2017-11-24 12:39 | Emergency (ER) | payer BC, OTHER ==
[~2017-11-24] VITALS: Ht 182.9 cm; Wt 89.8 kg
[~2017-11-24 12:39] MED LIST changes: +FLONASE SENSIM9.9 ML NS; +MELOXICAM15 MG PO; +ROSUVASTATIN CA20 MG PO; +SERTRALINE HCL100 MG PO; +SILENOR3 MG PO
[2017-11-24 13:31] LABS: BASOPHIL (%) 0.6 % (0-1); BASOPHIL COUNT 0.1 K/uL (0-0.1); EOSINOPHIL (%) 1.9 % (0-5); EOSINOPHIL COUNT 0.2 K/uL (0-0.3); HEMATOCRIT 44.8 % (38.0-50.0); HEMOGLOBIN 14.8 G/DL (12.5-16.6); IMMATURE GRANULOCYTE (%) 0.2 % (0.0-0.7); INTER. NORMALIZED RATIO 1.1; LYMPHOCYTE (%) 32.7 % (15-42); LYMPHOCYTE COUNT 2.7 K/uL (1.0-2.8); MCH 30.1 PG (29.0-34.0); MCV 91.1 FL (86-99); MONOCYTE (%) 6.8 % (3-12); MONOCYTE COUNT 0.6 K/uL (0-0.8); NEUTROPHIL (%) 57.8 % (45-76); NEUTROPHIL COUNT 4.7 K/uL (1.8-6.4); PLATELET COUNT 147 K/uL (156-360); RBC DIS.WIDTH-CV 12.2 % (11.8-14.6); RBC DIS.WIDTH-SD 40.8 % (39-53); RED BLOOD COUNT 4.92 M/uL (4.00-5.50); WHITE BLOOD COUNT 8.1 K/uL (4.1-10.2)
[2017-11-24 13:33] LABS: ALBUMIN 4.1 g/dL (3.2-4.8); CHLORIDE 108 mEq/L (99-109); MAGNESIUM 2.3 mg/dL (1.3-2.7); POTASSIUM 4.6 mEq/L (3.7-5.4); SODIUM 143 mEq/L (136-147)
[2017-11-24 13:34] LABS: PTT 28.2 SEC (25-37)
[2017-11-24 13:35] LABS: GLUCOSE 87 mg/dL (70-99); TOTAL PROTEIN 6.9 g/dL (6.4-8.3)
[2017-11-24 13:37] LABS: TOTAL BILIRUBIN 0.6 mg/dL (0.0-1.0)
[2017-11-24 13:38] LABS: SERUM ETHYL ALCOHOL < 10 mg/dL
[2017-11-24 13:39] LABS: ALKALINE PHOSPHATASE 56 IU/L (3-129); CREATININE 0.7 mg/dL (0.6-1.3); GFR ESTIMATE (CALCULATED) > 59 mL/min/ (58.99-99999)
[2017-11-24 13:40] LABS: UREA NITROGEN (BUN) 11 mg/dL (9-23)
[2017-11-24 13:41] LABS: AST (GOT) 11 IU/L (2-34)
[2017-11-24 13:42] LABS: ALT (GPT) 13 IU/L (3-49)
[2017-11-24 13:45] LABS: TROP-I INTERPRETATION NEGATIVE; TROPONIN-I < 0.01 ng/mL (0.0-0.30)
[2017-11-24 13:52] LABS: CK-MB 1.3 ng/mL (0.0-4.9)
[2017-11-24 14:17] LABS: APPEARANCE CLEAR ((CLEAR)); BILIRUBIN NEGATIVE; BLOOD NEGATIVE; COLOR YELLOW ((YELLOW)); GLUCOSE (STRIP) NEGATIVE; KETONES NEGATIVE; LEUKOCYTES NEGATIVE; NITRITE NEGATIVE; PROTEIN (STRIP) NEGATIVE; SPECIFIC GRAVITY 1.019 (1.000-1.030); UCUL ADDED? NO; UROBILINOGEN 0.2 MG/DL (0.2-1.0)
[2017-11-24 14:24] LABS: CKMB RELATIVE INDEX 1.2 (0.0-3.9); CREATINE KINASE 112 IU/L (1-294); TOTAL CK 112 IU/L (1-294); VALPROIC ACID (DEPAKOTE) 47.2 MCG/ML (50-100)
[2017-11-24] MEDS ORDERED: ZANTAC150 MG PO (16:04)
[2017-11-24 16:33] VITALS: BP 142/83
== END 2017-11-24 16:51 | disposition home or self-care (01) ==
LOC: EME 12:39
PROVIDERS: Emergency Medicine
DX: R20.2 Paresthesia of skin (principal); R11.0 Nausea; I10 Essential (primary) hypertension; E78.5 Hyperlipidemia, unspecified; G43.109 Migraine with aura, not intractable, without status migrainosus; G47.9 Sleep disorder, unspecified; G25.81 Restless legs syndrome; F43.10 Post-traumatic stress disorder, unspecified; F32.9 Major depressive disorder, single episode, unspecified; F31.9 Bipolar disorder, unspecified; F41.0 Panic disorder [episodic paroxysmal anxiety]; F41.9 Anxiety disorder, unspecified; F17.200 Nicotine dependence, unspecified, uncomplicated; Z79.82 Long term (current) use of aspirin; Z87.442 Personal history of urinary calculi; Z86.73 Personal history of transient ischemic attack (TIA), and cerebral infarction without residual deficits; Z90.89 Acquired absence of other organs; Z88.8 Allergy status to other drugs, medicaments and biological substances; Z91.012 Allergy to eggs
CPT/HCPCS: 70450; 71045; 80053; 80164; 81003; 82550; 82553; 83735; 84484; 85025; 85610; 85730; 93005; 99281; 99285; G0480; J2765; J7040

== ENCOUNTER 2018-02-18 01:30 | Emergency (ER) | payer BC, OTHER ==
[~2018-02-18] VITALS: Ht 182.9 cm; Wt 96.7 kg
[~2018-02-18 01:30] MED LIST changes: +ZANTAC150 MG PO
[2018-02-18 01:36] VITALS: BP 110/78
[2018-02-18] MEDS ORDERED: TRAMADOL HCL50 MG PO (03:30)
[2018-02-18] MEDS ORDERED: SKELAXIN800 MG PO (03:30)
[2018-02-18] MEDS ORDERED: PREDNISONE10 M1 PO (03:30)
== END 2018-02-18 03:50 | disposition home or self-care (01) ==
LOC: EME 01:30
DX: M54.41 Lumbago with sciatica, right side (principal); F32.9 Major depressive disorder, single episode, unspecified; E78.5 Hyperlipidemia, unspecified; I10 Essential (primary) hypertension; Z87.442 Personal history of urinary calculi; F43.10 Post-traumatic stress disorder, unspecified; G25.81 Restless legs syndrome; H91.92 Unspecified hearing loss, left ear; Z79.82 Long term (current) use of aspirin; Z88.8 Allergy status to other drugs, medicaments and biological substances; F17.200 Nicotine dependence, unspecified, uncomplicated
CPT/HCPCS: 99281; 99284; J1885

== ENCOUNTER 2018-02-22 01:20 | Emergency (ER) | payer BC, OTHER ==
[~2018-02-22] VITALS: Ht 182.9 cm; Wt 80.0 kg
[~2018-02-22 01:20] MED LIST changes: +PREDNISONE10 M1 PO; +SKELAXIN800 MG PO
[2018-02-22 01:49] LABS: APPEARANCE CLEAR ((CLEAR)); BILIRUBIN NEGATIVE; BLOOD NEGATIVE; COLOR YELLOW ((YELLOW)); GLUCOSE (STRIP) NEGATIVE; KETONES NEGATIVE; LEUKOCYTES NEGATIVE; NITRITE NEGATIVE; PROTEIN (STRIP) NEGATIVE; SPECIFIC GRAVITY 1.012 (1.000-1.030); UCUL ADDED? NO; UROBILINOGEN 0.2 MG/DL (0.2-1.0)
[2018-02-22 01:58] LABS: AMPHETAMINE NEGATIVE (500 ng/mL); BARBITURATES NEGATIVE (200 ng/mL); BENZODIAZEPINES NEGATIVE (150 ng/mL); BUPRENORPHINE NEGATIVE (10 ng/mL); COCAINE NEGATIVE (150 ng/mL); METHADONE NEGATIVE (200 ng/mL); METHAMPHETAMINE NEGATIVE (500 ng/mL); OPIATES (MORPHINE) NEGATIVE (100 ng/mL); OXYCODONE NEGATIVE (100 ng/mL); PHENCYCLIDINE NEGATIVE (25 ng/mL); PROPOXYPHENE NEGATIVE (300 ng/mL); THC CANNABINOIDS NEGATIVE (50 ng/mL); TRICYCLIC ANTIDEPRESSANTS NEGATIVE (300 ng/mL)
[2018-02-22 01:59] LABS: HEMATOCRIT 44.5 % (38.0-50.0); HEMOGLOBIN 15.1 G/DL (12.5-16.6); MCH 30.9 PG (29.0-34.0); MCHC 33.9 G/DL (30.0-36.0); MCV 91.2 FL (86-99); PLATELET COUNT 233 K/uL (156-360); RBC DIS.WIDTH-CV 14.1 % (11.8-14.6); RBC DIS.WIDTH-SD 47.1 % (39-53); RED BLOOD COUNT 4.88 M/uL (4.00-5.50); WHITE BLOOD COUNT 10.3 K/uL (4.1-10.2)
[2018-02-22 02:10] LABS: ALBUMIN 4.1 g/dL (3.2-4.8)
[2018-02-22 02:11] LABS: CHLORIDE 106 mEq/L (99-109); POTASSIUM 3.5 mEq/L (3.7-5.4); SODIUM 144 mEq/L (136-147)
[2018-02-22 02:13] LABS: GLUCOSE 98 mg/dL (70-99); TOTAL PROTEIN 6.5 g/dL (6.4-8.3)
[2018-02-22 02:15] LABS: TOTAL BILIRUBIN 0.2 mg/dL (0.0-1.0)
[2018-02-22 02:16] LABS: SERUM ETHYL ALCOHOL 102 mg/dL
[2018-02-22 02:17] LABS: ALKALINE PHOSPHATASE 66 IU/L (3-129); CREATININE 0.8 mg/dL (0.6-1.3); GFR ESTIMATE (CALCULATED) > 59 mL/min/ (58.99-99999)
[2018-02-22 02:18] LABS: AST (GOT) 14 IU/L (2-34); UREA NITROGEN (BUN) 16 mg/dL (9-23)
[2018-02-22 02:20] LABS: ALT (GPT) 14 IU/L (3-49)
[2018-02-22 03:23] VITALS: BP 141/90
== END 2018-02-22 03:23 | disposition home or self-care (01) ==
LOC: EME 01:20
PROVIDERS: Emergency Medicine
DX: F10.129 Alcohol abuse with intoxication, unspecified (principal); Y90.5 Blood alcohol level of 100-119 mg/100 ml; F32.9 Major depressive disorder, single episode, unspecified; I10 Essential (primary) hypertension; E78.5 Hyperlipidemia, unspecified; G25.81 Restless legs syndrome; G43.909 Migraine, unspecified, not intractable, without status migrainosus; H91.92 Unspecified hearing loss, left ear; F43.10 Post-traumatic stress disorder, unspecified; F17.200 Nicotine dependence, unspecified, uncomplicated; Z90.49 Acquired absence of other specified parts of digestive tract; Z79.82 Long term (current) use of aspirin; Z86.59 Personal history of other mental and behavioral disorders; Z87.442 Personal history of urinary calculi; Z91.012 Allergy to eggs; Z88.8 Allergy status to other drugs, medicaments and biological substances
CPT/HCPCS: 80053; 81003; 85027; 90837; 99281; 99284; G0480

== ENCOUNTER 2018-02-27 01:47 | Observation (INO) | payer BC, OTHER ==
[~2018-02-27] VITALS: Ht 182.9 cm; Wt 97.5 kg
[~2018-02-27 01:47] MED LIST changes: -SILENOR3 MG PO; +SILENOR6 MG PO
[2018-02-27 02:15] LABS: HEMATOCRIT 43.5 % (38.0-50.0); MCH 31.5 PG (29.0-34.0); MCHC 34.5 G/DL (30.0-36.0); MCV 91.4 FL (86-99); PLATELET COUNT 192 K/uL (156-360); RBC DIS.WIDTH-CV 13.5 % (11.8-14.6); RBC DIS.WIDTH-SD 45.7 % (39-53); RED BLOOD COUNT 4.76 M/uL (4.00-5.50); WHITE BLOOD COUNT 8.6 K/uL (4.1-10.2)
[2018-02-27 02:23] LABS: ALBUMIN 3.9 g/dL (3.2-4.8); CHLORIDE 111 mEq/L (99-109); SODIUM 142 mEq/L (136-147)
[2018-02-27 02:26] LABS: GLUCOSE 96 mg/dL (70-99); TOTAL PROTEIN 6.4 g/dL (6.4-8.3)
[2018-02-27 02:28] LABS: TOTAL BILIRUBIN 0.2 mg/dL (0.0-1.0)
[2018-02-27 02:29] LABS: ALKALINE PHOSPHATASE 72 IU/L (3-129); SERUM ETHYL ALCOHOL 84 mg/dL
[2018-02-27 02:30] LABS: CREATININE 0.8 mg/dL (0.6-1.3); GFR ESTIMATE (CALCULATED) > 59 mL/min/ (58.99-99999)
[2018-02-27 02:31] LABS: AST (GOT) 12 IU/L (2-34); UREA NITROGEN (BUN) 14 mg/dL (9-23)
[2018-02-27 02:32] LABS: ALT (GPT) 12 IU/L (3-49)
[2018-02-27 02:33] LABS: LIPASE 28 U/L (1.0-51.0)
[2018-02-27 02:35] LABS: TROP-I INTERPRETATION NEGATIVE; TROPONIN-I 0.01 ng/mL (0.0-0.30)
[2018-02-27 05:03] LABS: D-DIMER ELISA < 150.00 ng/mLDDU (<230)
[2018-02-27 05:40] VITALS: BP 120/64
[2018-02-27 05:44] LABS: HDL CHOLESTEROL 46 MG/DL (Desirable>=40); NON-HDL CHOLESTEROL 125 mg/dL (Desirable<160); TOTAL CHOLESTEROL 171 mg/dL (Desirable<200); TRIGLYCERIDES 401 MG/DL (Normal: <150)
[2018-02-27 09:39] LABS: TROP-I INTERPRETATION NEGATIVE; TROPONIN-I < 0.01 ng/mL (0.0-0.30)
[2018-02-27 10:41] VITALS: BP 132/82
[2018-02-27] MEDS ORDERED: KLONOPIN1 MG PO (11:25)
[2018-02-27] MEDS ORDERED: ZOLOFT100 MG PO (11:28)
[2018-02-27] MEDS ORDERED: ATARAX,VISTARIL25 MG PO (11:29)
[2018-02-27] MEDS ORDERED: OMEGA-3 FISH O1 EA11 PO (11:30)
[2018-02-27 11:41] LABS: BENZODIAZEPINES, URINE SCREEN Negative (200 ng/mL)
[2018-02-27 14:43] LABS: TROP-I INTERPRETATION NEGATIVE; TROPONIN-I < 0.01 ng/mL (0.0-0.30)
== END 2018-02-27 15:25 | disposition home or self-care (01) ==
LOC: EME → EDBD 01:47 → EDOF 03:44 → ENRESERV 03:46 → 4SOUTH 05:35
PROVIDERS: Emergency Medicine; Hospitalist; Internal Medicine
DX: R07.9 Chest pain, unspecified (principal); S92.531A Displaced fracture of distal phalanx of right lesser toe(s), initial encounter for closed fracture; F31.9 Bipolar disorder, unspecified; F60.9 Personality disorder, unspecified; G43.909 Migraine, unspecified, not intractable, without status migrainosus; F17.200 Nicotine dependence, unspecified, uncomplicated; Z82.49 Family history of ischemic heart disease and other diseases of the circulatory system; Z80.1 Family history of malignant neoplasm of trachea, bronchus and lung; F43.10 Post-traumatic stress disorder, unspecified; F41.0 Panic disorder [episodic paroxysmal anxiety]; Y04.8XXA Assault by other bodily force, initial encounter; Z79.82 Long term (current) use of aspirin; Z88.8 Allergy status to other drugs, medicaments and biological substances; Z91.012 Allergy to eggs
CPT/HCPCS: 71046; 71250; 72125; 72128; 73660; 74176; 80053; 80061; 80306 90; 83690; 83880; 84484; 85027; 85379; 93005; 99281; 99285; G0378; G0480; S0028

== ENCOUNTER 2018-05-11 23:59 | Emergency (ER) | payer BC, OTHER ==
[~2018-05-11] VITALS: Ht 182.9 cm; Wt 97.7 kg
[~2018-05-11 23:59] MED LIST changes: +ATARAX,VISTARIL25 MG PO; +OMEGA-3 FISH O1 EA11 PO
[2018-05-12 00:59] LABS: BASOPHIL (%) 0.5 % (0-1); EOSINOPHIL (%) 2.2 % (0-5); EOSINOPHIL COUNT 0.2 K/uL (0-0.3); HEMATOCRIT 44.3 % (38.0-50.0); HEMOGLOBIN 15.1 G/DL (12.5-16.6); IMMATURE GRANULOCYTE (%) 0.3 % (0.0-0.7); LYMPHOCYTE (%) 36.6 % (15-42); LYMPHOCYTE COUNT 2.8 K/uL (1.0-2.8); MCH 30.6 PG (29.0-34.0); MCHC 34.1 G/DL (30.0-36.0); MCV 89.7 FL (86-99); MONOCYTE (%) 9.4 % (3-12); MONOCYTE COUNT 0.7 K/uL (0-0.8); NEUTROPHIL COUNT 3.9 K/uL (1.8-6.4); PLATELET COUNT 191 K/uL (156-360); RBC DIS.WIDTH-SD 39.5 % (39-53); RED BLOOD COUNT 4.94 M/uL (4.00-5.50); WHITE BLOOD COUNT 7.7 K/uL (4.1-10.2)
[2018-05-12 01:11] LABS: CHLORIDE 108 mEq/L (99-109); POTASSIUM 4.4 mEq/L (3.7-5.4); SODIUM 142 mEq/L (136-147)
[2018-05-12 01:13] LABS: GLUCOSE 107 mg/dL (70-99)
[2018-05-12 01:16] LABS: SERUM ETHYL ALCOHOL 101 mg/dL
[2018-05-12 01:17] LABS: GFR ESTIMATE (CALCULATED) > 59 mL/min/ (58.99-99999); UREA NITROGEN (BUN) 16 mg/dL (9-23)
[2018-05-12 01:40] LABS: AMPHETAMINE NEGATIVE (500 ng/mL); BARBITURATES NEGATIVE (200 ng/mL); BENZODIAZEPINES NEGATIVE (150 ng/mL); BUPRENORPHINE NEGATIVE (10 ng/mL); COCAINE NEGATIVE (150 ng/mL); METHADONE NEGATIVE (200 ng/mL); METHAMPHETAMINE NEGATIVE (500 ng/mL); OPIATES (MORPHINE) NEGATIVE (100 ng/mL); OXYCODONE PRESUMPTIVE POSITIVE (100 ng/mL); PHENCYCLIDINE NEGATIVE (25 ng/mL); PROPOXYPHENE NEGATIVE (300 ng/mL); THC CANNABINOIDS NEGATIVE (50 ng/mL); TRICYCLIC ANTIDEPRESSANTS NEGATIVE (300 ng/mL)
[2018-05-12 02:16] VITALS: BP 142/85
== END 2018-05-12 02:17 | disposition home or self-care (01) ==
LOC: EME 23:59
PROVIDERS: Emergency Medicine
DX: F10.10 Alcohol abuse, uncomplicated (principal); Y90.5 Blood alcohol level of 100-119 mg/100 ml; F32.9 Major depressive disorder, single episode, unspecified; I10 Essential (primary) hypertension; E78.5 Hyperlipidemia, unspecified; F17.200 Nicotine dependence, unspecified, uncomplicated; Z87.442 Personal history of urinary calculi; Z79.82 Long term (current) use of aspirin; Z88.8 Allergy status to other drugs, medicaments and biological substances
CPT/HCPCS: 80048; 85025; 90837; 99281; 99284; G0480